=== PATIENT | female | born 1970 ===

== ENCOUNTER 2021-08-11 10:28 | Inpatient (IN) ==
[~2021-08-11 10:28] MED LIST: Buffered Lidocaine 1% SYRIN 1 ml INTRADERM ONE; DiMENhydriNATE IV 50 mg/ml 1 ml VIAL IV PUSH ONE; DiMENhydriNATE IV 50 mg/ml 1 ml VIAL ONE; HYDROcodone/ACETAMIN 5/325 mg TAB PO PRN; Lactated Ringers 1000 ml BAG 1,000 ML IV SCH; Metoclopramide 5 MG/ML VIAL (10 mg) IV PRN; Naloxone 0.4 mg VIAL 0.4 mg/ml 1 ml VIAL IV PRN; Ondansetron 4 mg VIAL 2 MG/ML 2 ml VIAL IV PRN; ceFAZolin 2 GM in NS PREMIX 2 GM/100 ML BAG IVPB ONE; fentaNYL 100 mcg/2 ml 50 MCG/ML VIAL IV PRN
[2021-08-11] MEDS ORDERED: Midazolam 2 mg/2 ml VIAL 1 mg/ml 2 ml VIAL (2 mg) ONE ×2 (11:26→12:42)
[2021-08-11] MEDS ORDERED: Dexamethasone IV 4 MG/ML VIAL 1 ml VIAL ONE (11:26)
[2021-08-11] MEDS ORDERED: fentaNYL 100 mcg/2 ml 50 MCG/ML VIAL ONE ×2 (11:26→15:59)
[2021-08-11] MEDS ORDERED: Bupivacaine 0.5% SDV PF 30ML VIAL ONE (11:26)
[2021-08-11] MEDS ORDERED: Lidocaine 2% PF 5 ML VIAL ONE (11:43)
[2021-08-11] MEDS ORDERED: Propofol 10 MG/ML 20 ML BTL ONE (11:44)
[2021-08-11] MEDS ORDERED: Ropivacaine 5 MG/ML 20 ML VIAL 0.5% (100 MG) ONE (11:48)
[2021-08-11] MEDS ORDERED: Glycopyrrolate IV 0.2 MG/ML 1 ML VIAL ONE (12:49)
[2021-08-11] MEDS ORDERED: Lactulose 30 ml UDC PO PRN (13:14)
[2021-08-11] MEDS ORDERED: Magnesium Hydroxide LIQ 30 ML UDC PO PRN (13:14)
[2021-08-11] MEDS ORDERED: diPHENhydraMINE IV 50 MG/ML 1 ml VIAL (BENADRYL) IV PRN (13:14)
[2021-08-11] MEDS ORDERED: Morphine 2 MG/ML SYRINGE IV PRN (13:14)
[2021-08-11] MEDS ORDERED: diPHENhydraMINE 25 mg TAB PO PRN (13:14)
[2021-08-11] MEDS ORDERED: Ondansetron 4 mg VIAL 2 MG/ML 2 ml VIAL IV PRN (13:14)
[2021-08-11] MEDS ORDERED: Ondansetron ODT 4 mg TAB 4 MG TAB PO PRN (13:14)
[2021-08-11] MEDS ORDERED: HYDROcodone/ACETAMIN 5/325 mg TAB ONE (15:30)
[2021-08-11] MEDS: Lactated Ringers 1000 ml BAG 1,000 ML IV SCH (16:47)
[2021-08-11] MEDS: Magnesium Hydroxide LIQ 30 ML UDC PO SCH (22:11)
[2021-08-11] MEDS: ceFAZolin 1 GM ADVAN 1 GM in NS 0.9% 50 ML 50 ML IVPB SCH (22:12)
[2021-08-12] MEDS: Lactated Ringers 1000 ml BAG 1,000 ML IV SCH ×3 (03:42→11:40)
[2021-08-12 06:19] LABS: Hematocrit 33 % (35-47); Hemoglobin 11.4 g/dL (12.0-16.0); Mean Platelet Volume 7.3 fL (7.4-10.4); Platelet Count 174 10^3/uL (150-450)
[2021-08-12] MEDS: ceFAZolin 1 GM ADVAN 1 GM in NS 0.9% 50 ML 50 ML IVPB SCH ×2 (06:27→13:39)
[2021-08-12 06:43] LABS: Calcium 8.9 mg/dL (8.6-10.3)
[2021-08-12] MEDS ORDERED: Vitamin THERAPEUTIC TAB PO SCH (09:00)
[2021-08-12] MEDS: Magnesium Hydroxide LIQ 30 ML UDC PO SCH (09:21)
[2021-08-12] MEDS ORDERED: Lactated Ringers 500 ml BAG 500 ML IV ONE (09:40)
[2021-08-12 11:14] VITALS: BP 98/54
== END 2021-08-12 14:30 | disposition home or self-care (01) | DRG 302 ==
LOC: AA 10:28 → SSU 16:38
PROVIDERS: ADMIT Orthopaedic Surgery Adult Reconstructive Orthopaedic Surgery; ATTEND Orthopaedic Surgery Adult Reconstructive Orthopaedic Surgery